=== PATIENT | female | born 1975 | race Caucasian/White ===

== ENCOUNTER 2021-09-22 14:55 | Emergency (ER) | payer MEDICAID, OTHER, SELFPAY ==
--- NOTE | ~2021-09-22 | XR_ITS ---
EXAMINATION: XR CERVICAL SPINE CLINICAL INFORMATION: Radiculopathy COMPARISON: Radiculopathy TECHNIQUE: 3 views of the cervical spine were obtained. FINDINGS: There is normal cervical lordosis. Vertebral bodies are normal in height. No vertebral compression, spondylolisthesis, disc narrowing, or prevertebral soft tissue swelling. The odontoid appears intact. Bony mineralization normal. No erosive change. XR/XR cervical spine 3V IMPRESSION: Unremarkable examination.
[2021-09-22 15:01] VITALS: BP 117/72; PULSE 80; RESP 16; TEMP 36.6; O2SAT 98; BMI 25.4
--- NOTE | 2021-09-22 15:53 | ED.GENADULT ---
HPI - General Adult General Chief complaint: General Medical <MARIANNE Hope Last Filed: 09/22/21 18:10> Stated complaint: swollen neck <MARIANNE Hope Last Filed: 09/22/21 18:10> Time Seen by Provider: 09/22/21 15:41 <MARIANNE Hope Last Filed: 09/22/21 18:10> Source: patient <MARIANNE Hope Last Filed: 09/22/21 18:10> Mode of arrival: ambulatory <MARIANNE Hope Last Filed: 09/22/21 18:10> Limitations: no limitations <MARIANNE Hope Last Filed: 09/22/21 18:10> History of Present Illness HPI narrative: 46 y/o female right hand dominant female with no significant medical history presents to the ER for evaluation right sided jaw and neck pain & pain that started yesterday. She reports pain is worse with palpation at the ankle of the jaw and down into the and movement of her head to the left. She denies any dental or ear pain. No fever or chills. She also reports right hand and finger tingling and numbness for the last 3-4 days. It is worse when she wakes up. It is located in the palm of her hand and in the tips of her 2nd and 3rd digit. No pain or weakness. <MARIANNE Hope - Last Filed: 09/22/21 18:10> MD complaint: right sided jaw and neck pain, right hand tingling <MARIANNE Hope - Last Filed: 09/22/21 18:10> Onset (ago): day(s) <MARIANNE Hope Last Filed: 09/22/21 18:10> Location: face, right and upper extremity <MARIANNE Hope Last Filed: 09/22/21 18:10> Radiation: proximal <MARIANNE Hope Last Filed: 09/22/21 18:10> Severity: moderate <MARIANNE Hope Last Filed: 09/22/21 18:10> Severity scale (1-10): 7 <MARIANNE Hope Last Filed: 09/22/21 18:10> Quality: aching <MARIANNE Hope - Last Filed: 09/22/21 18:10> Pain Consistency: constant <MARIANNE Hope - Last Filed: 09/22/21 18:10> Relieving factors: none <MARIANNE Hope - Last Filed: 09/22/21 18:10> Exacerbating factors: movement and other (palpation) <MRAIANNE Hope - Last Filed: 09/22/21 18:10> Associated symptoms: denies other symptoms <MARIANNE Hope - Last Filed: 09/22/21 18:10> Treatments prior to arrival: none <MARIANNE Hope Last Filed: 09/22/21 18:10> Related Data Home medications: Previous Rx's Medication Instructions Recorded ibuprofen 600 mg tablet 600 mg PO Q8H PRN #20 tab 09/22/21 <MARIANNE Hope Last Filed: 09/22/21 18:10> Allergies/adverse reactions: Allergies Allergy/AdvReac Type Severity Reaction Status Date / Time No Known Allergies Allergy Unverified 07/23/20 17:16 <MARIANNE Hpoe - Last Filed: 09/22/21 18:10> Review of Systems Review of Systems: Constitutional: No Fever, No Chills ENT/Mouth: No sore throat, No Rhinorrhea, No Swallowing Difficulty, No dental pain Cardiovascular: No Chest Pain, No SOB, No Orthopnea, No Edema Respiratory: No Cough, No Sputum, No Wheezing, No dyspnea Gastrointestinal: No Nausea, No Vomiting, No Diarrhea, No abdominal Pain Musculoskeletal: +joint pain, + Myalgias Skin: No Skin Lesions, No rash Neuro: No Weakness, + Numbness, No Dizziness, No Headache Psych: No Anxiety/Panic, No Depression Heme/Lymph: No Bruising, + Lymphadenopathy Endocrine: No Polyuria, No Polydipsia <MARIANNE Hope Last Filed: 09/22/21 18:10> [facility] Past Medical History Medical History: Medical History (Updated 09/22/21 @ 16:28 by MARIANNE Hope) Back pain <MARIANNE Hope Last Filed: 09/22/21 18:10> Social History Social History: Social History Alcohol intake: unknown Patient Tobacco Use Status: Tobacco use Unknown Advance Directives: No Advance Directives Information Provided: No <MARIANNE Hope - Last Filed: 09/22/21 18:10> Physical Exam Vital Signs: Vital Signs: Last Vital Signs Temp 97.8 F 09/22/21 15:01 Pulse 80 09/22/21 15:01 Resp 16 09/22/21 15:01 BP 117/72 09/22/21 15:01 Pulse Ox 98 09/22/21 15:01 Body Mass Index 25.4 <MARIANNE Hope - Last Filed: 09/22/21 18:10> Vital Signs: Last Vital Signs Temp 97.8 F 09/22/21 15:01 Pulse 80 09/22/21 15:01 Resp 16 09/22/21 15:01 BP 117/72 09/22/21 15:01 Pulse Ox 98 09/22/21 15:01 Body Mass Index 25.4 <Roge Waterman MD - Last Filed: 09/22/21 16:30> Appearance: Alert. Oriented X3. No acute distress. Eyes: Pupils equal, round and reactive to light. ENT: Pharynx normal. No dental tenderness or swelling. right angle of the mandible with tenderness and swelling over area of parotid gland. No overylyign erythema or warmth. Normal TM's bilaterally. No mastoid tenderness. Neck: Normal inspection. Neck supple. Right distal neck CVS: Normal heart rate and rhythm. Pulses normal. Respiratory: No respiratory distress. Breath sounds normal. Abdomen: Soft and nontender. +BS x4 Skin: Skin warm and dry. Normal skin color. Normal skin turgor. No rashes. Extremities: No lower extremity edema. Neuro: Oriented X 3. No motor deficit. No sensory deficit. <MARIANNE Hope - Last Filed: 09/22/21 18:10> Course Course Course Narrative: 46-year-old female presenting with right-sided jaw and neck pain with associated swelling and tenderness. Exam is consistent with enlarged parotid gland on the right side. No evidence of dental abscess. In addition she has a few days worth of tingling and numbness in the right hand and fingers in the area of the median nerve distribution. Will get x-ray of the cervical spine to assess. <MARIANNE Hope - Last Filed: 09/22/21 18:10> Reevaluation(s) Reevaluation #1: The patient has evidence of 2 different processes. The first is that she has right sided parotiditis. With tenderness but no erythema, no evidence of facial cellulits, no abscess. The second process is her history is most consistent with carpal tunnel as her first three fingers are numb when she wakes up. She will go home on sucking candies and NSAIDS <Roge Waterman MD - Last Filed: 09/22/21 16:30> Time: 16:30 <Roge Waterman MD - Last Filed: 09/22/21 16:30> Reevaluation #2: XR cervical spine normal. Placed in wrist splint for comfort. Encourged to f/u with Ortho if symptoms persist with supportive care. Stable for d/c home. <MARIANNE Hope - Last Filed: 09/22/21 18:10> Critical Care Time Critical Care Time Critical Care Time: No <MARIANNE Hope - Last Filed: 09/22/21 18:10> Discharge Plan Discharge Clinical Impression: Parotiditis <MARIANNE Hope - Last Filed: 09/22/21 18:10> Patient Disposition: Home, Self-Care <MARIANNE Hope - Last Filed: 09/22/21 18:10> Instructions: Paresthesia (ED), Sialoadenitis (ED) <MARIANNE Hope - Last Filed: 09/22/21 18:10> Additional Instructions: Your jaw and neck swelling and pain are due to inflammation of one of your salivary glands Recommend warm compresses to the area and gentle massage several times per day Sour candy can help as well, or sucking on lemon wedges Your hand tingling is most likely due to compression of a nerve. Use the provided wrist brace as needed. Recommend sleeping in it to keep your wrist in a neutral position. Take the prescribed medication as needed for pain and swelling. Follow up with your doctor as needed. If you have ongoing numbness or tingling in your hand or fingers, recommend following up with nuisance wildlife specialist - name and number below. If you have persistent or worsening symptoms come back to the ER for further evaluation. <MARIANNE Hope - Last Filed: 09/22/21 18:10> Prescriptions: New ibuprofen 600 mg tablet 600 mg PO Q8H PRN (Reason: pain) Qty: 20 RF: 0 <MARIANNE Hope - Last Filed: 09/22/21 18:10> Referrals: Sabina Dejesus PA-C [Physician [employer] Battery Tester] - 1 week (right hand paresthesias - ?carpal tunnel) <MARIANNE Hope - Last Filed: 09/22/21 18:10> Stand Alone Forms: Work/School Release <MARIANNE Hope - Last Filed: 09/22/21 18:10> Interventions: ED Discharge Assessment Last Done: 09/22/21 17:11 <MARIANNE Hope - Last Filed: 09/22/21 18:10> Discharge Date/Time: 09/22/21 17:14 <MARIANNE Hope - Last Filed: 09/22/21 18:10>
[2021-09-22] MEDS: Ibuprofen 600 MG TABLET PO (16:00)
== END 2021-09-22 17:14 | disposition home or self-care (01) ==
PROVIDERS: Emergency Provider Emergency Medicine
DX: K11.20 Sialoadenitis, unspecified (principal)
CPT/HCPCS: 72040; 99283; 99284

== ENCOUNTER 2021-09-28 05:27 | Emergency (ER) | payer MEDICAID, OTHER, SELFPAY ==
--- NOTE | ~2021-09-28 | CT_ITS ---
EXAMINATION: CT HEAD WITHOUT CONTRAST CLINICAL INFORMATION: Vertigo. COMPARISON: None TECHNIQUE: Contiguous axial imaging was performed from the skull base to vertex without intravenous administration of contrast. This CT examination was performed using dose optimization techniques as appropriate, variously including the following: *Automated exposure control *Adjustment of mA and/or kV according to patient size (this includes techniques or standardized protocols for targeted exams where dose is matched to indication/reason for exam; i.e. extremities or head) *Use of iterative reconstruction technique DLP: 649 mGy-cm FINDINGS: There is no evidence of acute intracranial hemorrhage or territorial infarction. No abnormal mass effect or midline shift is seen. Dash to white matter differentiation is well preserved. No extra-axial fluid collections are identified. The ventricles are normal in size. There is no abnormal attenuation within the brain parenchyma. The osseous structures and soft tissues are normal. The mastoid air cells and visualized portions of the paranasal sinuses are well aerated. CT/CT head/brain wo con IMPRESSION: No acute intracranial process seen.
[2021-09-28 05:53] VITALS: BP 115/74; PULSE 70; RESP 16; TEMP 36.5; O2SAT 98; BMI 28.0
--- NOTE | 2021-09-28 07:17 | ED_ITS ---
HPI - Dizziness General Chief Complaint: Dizziness Stated Complaint: dizziness Time Seen by Provider: 09/28/21 07:17 Source: patient Mode of arrival: ambulatory Limitations: language barrier History of Present Illness HPI Narrative: history obtained by strategic advisor. she woke up and the room was spinning with nausea. Patient had diaphoresis. Patient had these feelings prior but never sought medical attention. Patient denies . 8 days ago she was seen for swollen parotid gland. MD elicited complaint: dizziness Onset (ago): hour(s) Timing: sudden onset Severity: moderate Description: room spinning Associated symptoms: nausea and diaphoresis Related Data Previous Rx's Medication Instructions Recorded ibuprofen 600 mg tablet 600 mg PO Q8H PRN #20 tab 09/22/21 meclizine 25 mg tablet 25 mg PO TID PRN #20 tab 09/28/21 Allergies Allergy/AdvReac Type Severity Reaction Status Date / Time No Known Allergies Allergy Unverified 07/23/20 17:16 Review of Systems Constitutional: Constitutional: Reports no additional constitutional complaints Eyes: Eyes: Reports no additional eye complaints ENT: Denies dizziness Cardiovascular: Cardiovascular: Reports no additional cardiovascular complaints Respiratory: Respiratory: Reports as per HPI Gastrointestinal: Gastrointestinal: Reports no additional gastrointestinal complaints Genitourinary: Genitourinary: Reports no additional female genitourinary complaints Musculoskeletal: Musculoskeletal: Reports no additional musculoskeletal complaints Integumentary/Breasts: Skin/Breast: Denies rash Neurologic: Reports system reviewed and no additional complaints, except as documented, Denies dizziness and Denies Sensory deficit (Neuro) Psychiatric: Psychiatric: Denies anxiety [facility] Past Medical History Medical History (Updated 09/28/21 @ 09:58 by Roge Waterman MD) Back pain Social History Social History Alcohol intake: unknown Patient Tobacco Use Status: Tobacco use Unknown Advance Directives: No Physical Exam Vital Signs: Vital Signs: Last Vital Signs Temp 97.7 F 09/28/21 05:53 Pulse 70 09/28/21 05:53 Resp 16 09/28/21 05:53 BP 115/74 09/28/21 05:53 Pulse Ox 98 09/28/21 05:53 Body Mass Index 28.0 Const: General: healthy appearing Nutritional Appearance: average body habitus Orientation/consciousness: oriented to person and patient oriented x3 Limitations: no limitations HENMT: Head: Yes normal to inspection Ears: external ears normal General nose exam: Normal external nose present Mouth: Normal oral and palatal mucosa present and oropharynx normal Throat: Yes posterior oropharynx normal Eyes: Other: nystagmus on right lateral gaze General: appearance normal, both eyes and all related structures Neck: Other: supple Neck: Yes normal visual inspection Chest: Chest palpation & inspection: normal inspection of the chest Resp: Auscultation: clear to auscultation bilaterally Cardio: Jugular venous distension: no JVD Rate: regular rate Rhythm: regular rhythm Heart sounds: S1 normal heart sound present and S2 normal heart sound present GI: Inspection: Yes normal to inspection Palpation (GI): Soft to palpation, nontender and No hepatosplenomegaly present Auscultation: normal bowel sounds : General: Yes no CVA tenderness Back/Spine/Pelvis: Back: no CVA tenderness Skin: General skin exam: no rashes or lesions noted Neuro: Other: positive [place] on right gaze General: oriented to person and patient oriented x3 Cranial nerves: Yes CN's II-XII intact bilaterally Motor exam (neuro): 5/5 motor strength present throughout Sensory Exam: No Sensory deficit (Neuro) Extrem: General: Yes normal to inspection Psych: Appearance: grossly normal Course Reevaluation(s) Reevaluation #1: Patient with bpv on physical, no intracranial lesions, improved with meclizine will dc home Time: 09:58 MDM - Dizziness Lab Data Result diagrams: 09/28/21 07:41 09/28/21 07:41 Labs: Lab Results 09/28/21 09/28/21 09/28/21 Range/Units 07:41 07:41 07:41 WBC 6.7 (4.8-10.8) X10*3/uL RBC 4.56 (4.20-5.50) X10*6/uL Hgb 13.7 (12.0-16.0) g/dl Hct 41.3 (37.0-47.0) % MCV 90.6 (80.0-98.0) fL MCH 30.0 (27.0-33.0) pg MCHC 33.2 (31.0-35.0) g/dl RDW 12.0 (11.0-16.0) % Plt Count 221 (160-400) X10*3/uL MPV 10.7 (9.4-12.3) fL Immature Gran % (Auto) 0.3 (0.0-0.4) % Neut % (Auto) 61.8 (45-73) % Lymph % (Auto) 30.2 (20-40) % [place] % (Auto) 5.1 (2-11) % Eos % (Auto) 2.5 (0-4) % Baso % (Auto) 0.1 (0-2) % Lymph # (Auto) 2.0 (1.2-4.9) X10*3/uL [place] # (Auto) 0.3 (0.1-1.2) X10*3/uL Eos # (Auto) 0.2 (0.0-0.4) X10*3/uL Baso # (Auto) 0.0 (0.0-0.2) X10*3/uL Abs Immat Gran (auto) 0.02 (0.00-0.03) X10*3/uL Absolute Neuts (auto) 4.1 (2.0-8.3) x10*3/uL Absolute Nucleated RBC 0.000 (0.0-0.012) X10*3/uL Nucleated RBC % (auto) 0.0 (0.0-0.2) /100WBC Sodium 142 (135-145) mmol/L Potassium 4.1 (3.3-5.1) mmol/L Chloride 111 H (96-108) mmol/L Carbon Dioxide 25 (22-29) mmol/L Anion Gap 10 L (12-20) BUN 7 L (9-16) mg/dL Creatinine 0.60 (0.5-1.4) mg/dL Estim Creat Clear Calc 100.6 Estimated GFR > 60 Random Glucose 122 H (60-115) mg/dL Calcium 9.3 (8.4-10.2) mg/dL Urine Color STRAW Urine Appearance HAZY Urine pH 5.5 (5.0-8.0) Ur Specific [place] 1.020 (1.005-1.025) Urine Protein NEG (NEG-TRACE) MG/DL Urine Glucose (UA) NEG (NEG) MG/DL Urine Ketones NEG (NEG) MG/DL Urine Blood NEG (NEG) Urine Nitrite NEG (NEG) Ur Leukocyte Esterase 3+ H (NEG) Urine RBC 0-2 (0) /HPF Urine WBC 1-4 (0-4) /HPF Ur Squamous Epith Cells 1+ /LPF Urine Bacteria TRACE /LPF Urine Test (NEGATIVE) 09/28/21 Range/Units 07:41 WBC (4.8-10.8) X10*3/uL RBC (4.20-5.50) X10*6/uL Hgb (12.0-16.0) g/dl Hct (37.0-47.0) % MCV (80.0-98.0) fL MCH (27.0-33.0) pg MCHC (31.0-35.0) g/dl RDW (11.0-16.0) % Plt Count (160-400) X10*3/uL MPV (9.4-12.3) fL Immature Gran % (Auto) (0.0-0.4) % Neut % (Auto) (45-73) % Lymph % (Auto) (20-40) % [place] % (Auto) (2-11) % Eos % (Auto) (0-4) % Baso % (Auto) (0-2) % Lymph # (Auto) (1.2-4.9) X10*3/uL [place] # (Auto) (0.1-1.2) X10*3/uL Eos # (Auto) (0.0-0.4) X10*3/uL Baso # (Auto) (0.0-0.2) X10*3/uL Abs Immat Gran (auto) (0.00-0.03) X10*3/uL Absolute Neuts (auto) (2.0-8.3) x10*3/uL Absolute Nucleated RBC (0.0-0.012) X10*3/uL Nucleated RBC % (auto) (0.0-0.2) /100WBC Sodium (135-145) mmol/L Potassium (3.3-5.1) mmol/L Chloride (96-108) mmol/L Carbon Dioxide (22-29) mmol/L Anion Gap (12-20) BUN (9-16) mg/dL Creatinine (0.5-1.4) mg/dL Estim Creat Clear Calc Estimated GFR Random Glucose (60-115) mg/dL Calcium (8.4-10.2) mg/dL Urine Color Urine Appearance Urine pH (5.0-8.0) Ur Specific [place] (1.005-1.025) Urine Protein (NEG-TRACE) MG/DL Urine Glucose (UA) (NEG) MG/DL Urine Ketones (NEG) MG/DL Urine Blood (NEG) Urine Nitrite (NEG) Ur Leukocyte Esterase (NEG) Urine RBC (0) /HPF Urine WBC (0-4) /HPF Ur Squamous Epith Cells /LPF Urine Bacteria /LPF Urine Test NEGATIVE (NEGATIVE) Imaging Data CT scan - head: Radiologist's impression: IMPRESSION: No acute intracranial process seen. Discharge Plan Discharge Clinical Impression: Benign paroxysmal positional vertigo Qualifiers: Laterality: right Qualified Code(s): H81.11 - Benign paroxysmal vertigo, right ear Patient Disposition: Home, Self-Care Instructions: Benign Paroxysmal Positional Vertigo (ED) Prescriptions: New meclizine 25 mg tablet 25 mg PO TID PRN (Reason: dizziness) Qty: 20 RF: 0 No Action ibuprofen 600 mg tablet 600 mg PO Q8H PRN (Reason: pain) Qty: 20 RF: 0 Referrals: Physician,None [Primary Care Provider] - 1 week
[2021-09-28 07:46] LABS: MANUAL DIFF FLAG NO
[2021-09-28 07:57] LABS: Basophils Percent Auto 0.1 % (0-2); Eosinophils Absolute Auto 0.2 X10*3/uL (0.0-0.4); Eosinophils Percent Auto 2.5 % (0-4); Hematocrit 41.3 % (37.0-47.0); Hemoglobin 13.7 g/dl (12.0-16.0); Imm Gran Abs Auto 0.02 X10*3/uL (0.00-0.03); Imm Gran Pct Auto 0.3 % (0.0-0.4); Lymphocytes Percent Auto 30.2 % (20-40); Mean Corpuscular HGB Conc 33.2 g/dl (31.0-35.0); Mean Corpuscular Volume 90.6 fL (80.0-98.0); Mean Platelet Volume 10.7 fL (9.4-12.3); Monocytes Absolute Auto 0.3 X10*3/uL (0.1-1.2); Monocytes Percent Auto 5.1 % (2-11); Neutrophils Absolute Auto 4.1 x10*3/uL (2.0-8.3); Neutrophils Percent Auto 61.8 % (45-73); Platelet Count 221 X10*3/uL (160-400); Red Blood Count 4.56 X10*6/uL (4.20-5.50); White Blood Count 6.7 X10*3/uL (4.8-10.8)
[2021-09-28 08:01] LABS: Appearance Urine HAZY; Color Urine STRAW; Glucose Urine UA NEG (NEG); Leukocyte Esterase Urine 3+ (NEG); Nitrite Urine NEG (NEG); PH 5.5 (5.0-8.0); UACC Culture Trigger YES; Urine Blood NEG (NEG); Urine Ketones NEG (NEG); Urine Protein NEG (NEG-TRACE)
[2021-09-28 08:03] LABS: Anion Gap 10 (12-20); Blood Urea Nitrogen 7 mg/dL (9-16); Calcium 9.3 mg/dL (8.4-10.2); Carbon Dioxide 25 mmol/L (22-29); Chloride 111 mmol/L (96-108); Creatinine Clr Calc Pharmacy 100.6; Estimated Glomerular Filt Rate > 60; Glucose Random 122 mg/dL (60-115); Potassium 4.1 mmol/L (3.3-5.1); Sodium 142 mmol/L (135-145); UPreg QC Valid YES; Urine Pregnancy NEGATIVE (NEGATIVE)
[2021-09-28 08:17] LABS: RBC Urine 0-2 /HPF (0)
[2021-09-28 08:18] LABS: Bacteria Urine TRACE /LPF; Squamous Epithelial Cell Urine 1+ /LPF
[2021-09-28] MEDS: Meclizine HCl 25 MG TABLET 50 MG PO (08:50)
== END 2021-09-28 10:18 | disposition home or self-care (01) ==
PROVIDERS: Emergency Provider Emergency Medicine
DX: H81.11 Benign paroxysmal vertigo, right ear (principal); R11.0 Nausea; Z79.899 Other long term (current) drug therapy
CPT/HCPCS: 36415; 70450; 80048; 81001; 81003; 81025; 85025; 87086; 99283; 99284

== ENCOUNTER 2022-08-12 21:49 | Emergency (ER) | payer MEDICAID, OTHER, SELFPAY ==
[2022-08-12 21:55] VITALS: BP 112/65; PULSE 77; RESP 18; TEMP 36.1; O2SAT 97; BMI 26.4
--- NOTE | 2022-08-13 03:17 | ED.EXTPRO ---
HPI - Extremity Problem General Chief complaint: Extremity Problem Stated complaint: L leg pain Time Seen by Provider: 08/13/22 03:11 Source: patient Mode of arrival: ambulatory Limitations: no limitations History of Present Illness HPI Narrative: 47-year-old female presents emergency room complaining of left hip pain. Patient denies any falls or injury states she woke up yesterday with pain. Patient states she has never had this problem in the past pain is worse with movement she states she is unable to ambulate she was able to walk to the room as walking on triage. MD Complaint: extremity pain Related Data Previous Rx's Medication Instructions Recorded ibuprofen 600 mg tablet 600 mg PO Q8H PRN pain #20 tabs 09/22/21 meclizine 25 mg tablet 25 mg PO TID PRN dizziness #20 tabs 09/28/21 indomethacin 25 mg capsule 25 mg PO BID #20 caps 08/13/22 Allergies Allergy/AdvReac Type Severity Reaction Status Date / Time No Known Allergies Allergy Unverified 07/23/20 17:16 Review of Systems Review of Systems: Review of systems: General: Patient denies any fever chills recent illness or falls Musculoskeletal: Denies back pain or body aches or other injuries HEENT: denies headache, runny nose, ear pain Respiratory: denies shortness of breath, cough Cardiovascular: no chest pain or palpitations : denies dysuria, frequency Abdomen: no nausea vomiting denies abdominal pain Extremities: no swelling, no pain Skin: no diaphoresis Yes all other systems are reviewed and are negative PMFSH Past Medical History Medical History (Updated 08/13/22 @ 04:30 by Daljit Calixto DO) Back pain Social History Social History Alcohol intake: unknown Patient Tobacco Use Status: Tobacco use Unknown Advance Directives: No Advance Directives Information Provided: No Physical Exam Vital Signs: Vital Signs: Last Vital Signs Temp 98.0 F 08/13/22 04:26 Pulse 67 08/13/22 04:26 Resp 18 08/13/22 04:26 BP 103/64 08/13/22 04:26 Pulse Ox 95 08/13/22 04:26 O2 Del Method 08/13/22 04:26 BMI result Body Mass Index 26.4 General: Well-appearing well-nourished in no signs of distress HEENT: Normocephalic atraumatic Neck: No signs of JVD, no masses no tenderness or lymphadenopathy Cardiovascular: Regular rate and rhythm Respiratory: Clear to auscultation bilaterally Abdomen: Soft nontender no masses Extremities: Normal pedal pulses no signs of edema patient tender to palpation along the inner growing there is no tenderness at ASIS ASIS or along the greater trochanter of the hip patient is able to have full range of motion lower extremities. Skin: Dry warm no rashes Back: No tenderness full ROM MDM - Extremity (Nontraumatic) MDM Narrative Medical decision making narrative: Concern for ectopic I will get x-rays I have sent a UA and urine test. XR are negative negative UA not . I will discharge home. Lab Data Labs: Lab Results 08/13/22 08/13/22 Range/Units 03:59 03:59 Urine Color Yellow Urine Appearance Clear Urine pH 6.5 (5.0-9.0) Ur Specific [place] 1.020 (1.005-1.025) Urine Protein Negative (Neg-Trace) mg/dL Urine Glucose (UA) Negative (Negative) mg/dL Urine Ketones Negative (Negative) mg/dL Urine Blood Negative (Negative) Urine Nitrite Negative (Negative) Ur Leukocyte Esterase Trace H (Negative) Urine RBC 0-2 (0-2) /HPF Urine WBC 0-5 (0-5) /HPF Ur Squamous Epith Cells 0-2 (0-2) /HPF Urine Bacteria None Seen (None Seen) Hyaline Casts 0-2 (0-2) /LPF Urine Test NEGATIVE (NEGATIVE) Discharge Plan Discharge Clinical Impression: Left inguinal pain Patient Disposition: Home, Self-Care Instructions: Groin Strain (ED) Additional Instructions: Please call to follow up with your doctor. Prescriptions: New indomethacin 25 mg capsule 25 mg PO BID Qty: 20 0RF Rx Instructions: administer with food or milk No Action ibuprofen 600 mg tablet 600 mg PO Q8H PRN (Reason: pain) Qty: 20 0RF meclizine 25 mg tablet 25 mg PO TID PRN (Reason: dizziness) Qty: 20 0RF
[2022-08-13] MEDS: Acetaminophen 325 MG TABLET 650 MG PO (03:34)
[2022-08-13] MEDS: Ketorolac Tromethamine 30 MG/ML VIAL 15 MG IM (03:34)
[2022-08-13 04:06] LABS: Appearance Urine Clear; Color Urine Yellow; Glucose Urine UA Negative (Negative); Leukocyte Esterase Urine Trace (Negative); Nitrite Urine Negative (Negative); PH 6.5 (5.0-9.0); UMIC TRIGGER UACC YES; Urine Blood Negative (Negative); Urine Ketones Negative (Negative); Urine Protein Negative (Neg-Trace)
[2022-08-13 04:08] LABS: UPreg QC Valid YES; Urine Pregnancy NEGATIVE (NEGATIVE)
[2022-08-13 04:11] LABS: Bacteria Urine None Seen (None Seen); Hyaline Casts Urine 0-2 /LPF (0-2); RBC Urine 0-2 /HPF (0-2); Squamous Epithelial Cell Urine 0-2 /HPF (0-2); WBC Urine 0-5 /HPF (0-5)
[2022-08-13 04:26] VITALS: BP 103/64; PULSE 67; RESP 18; TEMP 36.7; O2SAT 95
== END 2022-08-13 05:25 | disposition home or self-care (01) ==
PROVIDERS: Emergency Provider Student in an Organized Health Care Education/Training Program
DX: R10.30 Lower abdominal pain, unspecified (principal)
CPT/HCPCS: 72170; 73552; 81001; 81025; 96372; 99283; 99284; J1885

== ENCOUNTER 2025-02-18 22:42 | Emergency (ER) | payer MEDICAID, OTHER, SELFPAY ==
--- NOTE | ~2025-02-18 | CT_ITS ---
CLINICAL HISTORY: left flank pain Exam: CT abdomen and pelvis without intravenous contrast. Comparison: None. Findings: CT abdomen: Mild areas of atelectasis are seen within the lung bases bilaterally. No acute bony lesions. Elevated right hemidiaphragm. The liver is not completely included in the field of view. Specifically, the superior right lobe of the liver is excluded from the field of view. Liver is enlarged measuring at least 21.5 cm in long axis. Low-attenuation throughout the liver is indicative of fatty infiltration. Areas of focal fatty sparing within the liver adjacent to the gallbladder fossa. Unenhanced spleen, pancreas, gallbladder, and adrenal glands are unremarkable for acute findings. No renal or ureteral calculi identified. No hydronephrosis or perinephric stranding. Small bowel loops are of normal caliber. Small hiatal hernia. Large amount of ingested contents within the stomach. CT pelvis: Appendix is normal. No colonic wall thickening or pericolonic inflammatory stranding. Bxrp-dr-daxstvvs stool throughout the colon. Urinary bladder is minimally distended. There is a 15 mm right ovarian cyst. No free fluid or free air. Impression: 1. No renal or ureteral calculi. 2. Hepatomegaly with diffuse fatty infiltration of the liver. 3. Negative CT of the appendix. This document has been electronically signed by: Rafael Glover MD on 02/19/2025 01:36:03
[2025-02-18 22:51] VITALS: BP 130/68; PULSE 77; RESP 18; TEMP 36.6; O2SAT 97; BMI 26.1
[2025-02-18 23:00] LABS: MANUAL DIFF FLAG NO
[2025-02-18 23:05] LABS: Basophils Percent Auto 0.2 % (0-2); Eosinophils Absolute Auto 0.2 X10*3/uL (0.0-0.4); Eosinophils Percent Auto 2.6 % (0-4); Hematocrit 38.4 % (37.0-47.0); Hemoglobin 13.7 g/dl (12.0-16.0); Imm Gran Abs Auto 0.01 X10*3/uL (0.00-0.03); Imm Gran Pct Auto 0.1 % (0.0-0.4); Lymphocytes Absolute Auto 2.8 X10*3/uL (1.2-4.9); Lymphocytes Percent Auto 34.4 % (20-40); Mean Corpuscular HGB Conc 35.7 g/dl (31.0-35.0); Mean Corpuscular Hemoglobin 30.3 pg (27.0-33.0); Mean Platelet Volume 10.4 fL (9.4-12.3); Monocytes Absolute Auto 0.4 X10*3/uL (0.1-1.2); Monocytes Percent Auto 5.3 % (2-11); Neutrophils Absolute Auto 4.7 x10*3/uL (2.0-8.3); Neutrophils Percent Auto 57.4 % (45-73); Platelet Count 235 X10*3/uL (160-400); Red Blood Count 4.52 X10*6/uL (4.20-5.50); Red Cell Distribution Width 11.7 % (11.0-16.0); White Blood Count 8.1 X10*3/uL (4.8-10.8)
[2025-02-18 23:15] LABS: Alanine Aminotransferase 118 U/L (0-31); Albumin Level 4.2 g/dL (3.5-5.0); Alkaline Phosphatase 100 U/L (39-117); Anion Gap 14 (12-20); Aspartate Amino Transferase 56 U/L (5-31); Bilirubin Total 0.4 mg/dL (0.0-1.0); Blood Urea Nitrogen 9 mg/dL (9-16); Calcium 9.1 mg/dL (8.4-10.2); Carbon Dioxide 21 mmol/L (22-29); Chloride 110 mmol/L (96-108); Creatinine Clr Calc Pharmacy 104.6; Estimated Glomerular Filt Rate > 60; Glucose Random 180 mg/dL (60-115); Lipase 53 U/L (8-78); Potassium 3.3 mmol/L (3.3-5.1); Sodium 142 mmol/L (135-145); Total Protein 7.4 g/dL (6.5-8.0)
[2025-02-18 23:47] LABS: Appearance Urine Clear; Color Urine Yellow; Glucose Urine UA 100 mg/dL (Negative); Leukocyte Esterase Urine Small (1+) (Negative); Nitrite Urine Negative (Negative); Specific Gravity - Urine 1.015 (1.005-1.025); UMIC TRIGGER UACC YES; Urine Blood Negative (Negative); Urine Ketones Negative (Negative); Urine Protein Negative (Neg-Trace)
--- NOTE | 2025-02-18 23:48 | PC.NURSE ---
pt waiting to be seen by provider, ua collected and sent.
[2025-02-18 23:49] LABS: Bacteria Urine None Seen (None Seen); Hyaline Casts Urine 0-2 /LPF (0-2); RBC Urine 0-2 /HPF (0-2); Squamous Epithelial Cell Urine 0-2 /HPF (0-2); UACC Culture Trigger YES
--- NOTE | 2025-02-19 00:10 | ED.GENADULT ---
HPI - General Adult General Chief complaint: Back Pain/Injury Stated complaint: Flank pain Time Seen by Provider: 02/19/25 00:05 Source: patient Limitations: no limitations History of Present Illness ED Provider: Magda Brice PA-C HPI narrative: 49-year-old female presents with left flank pain x2 hours. Associated dysuria, increased urine frequency, voiding small amounts at a time. Denies nausea, vomiting, prior kidney stones, or fever. Related Data Previous Rx's ?Medication ?Instructions ?Recorded ibuprofen 600 mg tablet 600 mg PO Q8H PRN pain #20 tabs 09/22/21 meclizine 25 mg tablet 25 mg PO TID PRN dizziness #20 tabs 09/28/21 indomethacin 25 mg capsule 25 mg PO BID #20 caps 08/13/22 indomethacin 25 mg capsule 25 mg PO BID #20 caps 08/13/22 cephalexin 500 mg capsule 500 mg PO BID #13 caps 02/19/25 metformin 500 mg tablet 500 mg PO BID #60 tabs 02/19/25 Allergies Allergy/AdvReac Type Severity Reaction Status Date / Time No Known Allergies Allergy Verified 02/18/25 22:53 Review of Systems Review of Systems: Yes all other systems are reviewed and are negative Constitutional: Constitutional: Denies fatigue and Denies fever(s) Cardiovascular: Cardiovascular: Denies chest pain Gastrointestinal: Gastrointestinal: Denies abdominal pain, Denies nausea and Denies vomiting Genitourinary: Genitourinary: Denies hematuria, Reports dysuria, Reports flank pain and Reports urinary urgency Musculoskeletal: Musculoskeletal: Reports back pain and Denies radiating pain into limb Endocrine: Endocrine: Denies fatigue PMFSH Past Medical History Attestation statement: The following information was validated with the patient. Medical History (Updated 02/19/25 @ 02:36 by MARIANNE Casper) Back pain Social History Social History Alcohol intake: unknown Patient Tobacco Use Status: Tobacco use Unknown Smoked in Last 30 Days: No Use of substances other than those prescribed or required for medical reasons: No Advance Directives: No Advance Directives Information Provided: Yes Do you have a plan to hurt others: No Plan Physical Exam ED Vital Signs: Vital Signs - 24 hr 02/18/25 22:51 02/19/25 00:54 Temperature 97.8 F 98.7 F Pulse Rate 77 72 Respiratory Rate 18 20 Blood Pressure 130/68 119/75 Pulse Oximetry 97 94 Oxygen Delivery Method Room Air Room Air BMI result Body Mass Index 26.1 Const Other: Alert Orientation/consciousness: patient oriented x3 Resp Other: Nonlabored respiration Cardio Other: Normal peripheral perfusion GI Other: Abdomen is soft, nondistended, mild tenderness through mid section, without guarding General: Yes no CVA tenderness Back/Spine/Pelvis Back: no CVA tenderness Skin Other: Warm dry no rash Neuro General: patient oriented x3, gait normal, no focal motor deficits and CN's II-XI intact bilaterally Psych Other: Cooperative Medications Administered Discontinued Medications Generic Name Dose Route Start Last Admin Trade Name Freq PRN Reason Stop Dose Admin Sodium Chloride 1,000 mls @ 999 mls/hr 02/19/25 00:45 02/19/25 01:00 Ns IV 02/19/25 01:45 999 mls/hr .Q1H1M BRENNEN Administration Ketorolac Tromethamine 15 mg 02/19/25 00:32 02/19/25 01:00 Ketorolac Tromethamine 15 Mg/Ml Vial IVPUSH 02/19/25 00:33 15 mg ONCE ONE Administration Medical Decision Making Medical Decision Making [facility] Narrative: 49-year-old female presents with left flank pain x2 hours. Associated dysuria, increased urine frequency, voiding small amounts at a time. Denies nausea, vomiting, prior kidney stones, or fever. No known medical conditions History: Per patient I have considered the following differential diagnoses: Pyelonephritis, renal colic, UTI Plan: Given distribution of discomfort in nature of symptoms, I am considering renal colic, we will obtain a CT scan, giving fluid and Toradol. She has no CVA tenderness or active N,V to suggest pyelonephritis, she also is afebrile. She does have evidence of a urinary tract infection. Incidentally, I do believe the patient has a new diagnosis of diabetes, her blood sugar is 180. I have independently reviewed the following tests: Labs: No leukocytosis, not anemic, no electrolyte abnormality, hyperglycemic, urine with potential evidence of infection, but no nitrites, no blood. She is passing sugar, CT abd pelvis: CT pelvis: Appendix is normal. No colonic wall thickening or pericolonic inflammatory stranding. [id number]-[id number] stool throughout the colon. Urinary bladder is minimally distended. There is a 15 mm right ovarian cyst. No free fluid or free air. Impression: 1. No renal or ureteral calculi. 2. Hepatomegaly with diffuse fatty infiltration of the liver. 3. Negative CT of the appendix. Lab Data 02/18/25 22:56 02/18/25 22:56 Labs: Lab Results 02/18/25 02/18/25 Range/Units 22:56 23:41 WBC 8.1 (4.8-10.8) X10*3/uL RBC 4.52 (4.20-5.50) X10*6/uL Hgb 13.7 (12.0-16.0) g/dl Hct 38.4 (37.0-47.0) % MCV 85.0 (80.0-98.0) fL MCH 30.3 (27.0-33.0) pg MCHC 35.7 H (31.0-35.0) g/dl RDW 11.7 (11.0-16.0) % Plt Count 235 (160-400) X10*3/uL MPV 10.4 (9.4-12.3) fL Immature Gran % (Auto) 0.1 (0.0-0.4) % Neut % (Auto) 57.4 (45-73) % Lymph % (Auto) 34.4 (20-40) % [place] % (Auto) 5.3 (2-11) % Eos % (Auto) 2.6 (0-4) % Baso % (Auto) 0.2 (0-2) % Lymph # (Auto) 2.8 (1.2-4.9) X10*3/uL [place] # (Auto) 0.4 (0.1-1.2) X10*3/uL Eos # (Auto) 0.2 (0.0-0.4) X10*3/uL Baso # (Auto) 0.0 (0.0-0.2) X10*3/uL Abs Immat Gran (auto) 0.01 (0.00-0.03) X10*3/uL Absolute Neuts (auto) 4.7 (2.0-8.3) x10*3/uL Absolute Nucleated RBC 0.000 (0.0-0.012) X10*3/uL Nucleated RBC % (auto) 0.0 (0.0-0.2) /100WBC Sodium 142 (135-145) mmol/L Potassium 3.3 (3.3-5.1) mmol/L Chloride 110 H (96-108) mmol/L Carbon Dioxide 21 L (22-29) mmol/L Anion Gap 14 (12-20) BUN 9 (9-16) mg/dL Creatinine 0.61 (0.5-1.4) mg/dL Estim Creat Clear Calc 104.6 Estimated GFR > 60 Random Glucose 180 H (60-115) mg/dL Calcium 9.1 (8.4-10.2) mg/dL Total Bilirubin 0.4 (0.0-1.0) mg/dL AST 56 H (5-31) U/L ALT 118 H (0-31) U/L Alkaline Phosphatase 100 (39-117) U/L Total Protein 7.4 (6.5-8.0) g/dL Albumin 4.2 (3.5-5.0) g/dL Lipase 53 (8-78) U/L Urine Color Yellow Urine Appearance Clear Urine pH 6.0 (5.0-9.0) Ur Specific [place] 1.015 (1.005-1.025) Urine Protein Negative (Neg-Trace) mg/dL Urine Glucose (UA) 100 H (Negative) mg/dL Urine Ketones Negative (Negative) mg/dL Urine Blood Negative (Negative) Urine Nitrite Negative (Negative) Ur Leukocyte Esterase Small (1+) H (Negative) Urine RBC 0-2 (0-2) /HPF Urine WBC 11-20 H (0-5) /HPF Ur Squamous Epith Cells 0-2 (0-2) /HPF Urine Bacteria None Seen (None Seen) Hyaline Casts 0-2 (0-2) /LPF Discharge Plan Discharge Clinical Impression: Diabetes mellitus, NAFLD (nonalcoholic fatty liver disease), Urinary tract infection, Constipation Patient Disposition: Home, Self-Care Instructions: Constipation (ED), Urinary Tract Infection in Women (ED), Type 2 Diabetes in Adults: New Diagnosis (ED), Non-Alcoholic Fatty Liver Disease (ED), Diabetes and Nutrition (ED), How to Check your Blood Sugar (ED) Additional Instructions: It is concerning that you have developed diabetes. I am providing you with information to read about. I am starting you on metformin, take the medication as directed, I can give you a 1 month supply. You were also found to have what is called fatty liver disease, see home care instructions. You will require consult by Gastroenterology, a primary care provider will expedite this process for you. You were found to be constipated and have a urinary tract infection. See home care instructions for both conditions. Take the cephalexin as directed for the urinary tract infection. For the constipation, you need to purchase [id number] Colace, this is a stool softener, take it twice a day. You need to also purchase [id number]-[id number] MiraLax, take it 3 to 4 times a day, until you begin having multiple large volume bowel movements. Once you have alleviated your current stool burden, you need to take the Colace daily, and the MiraLax daily, to help maintain regular bowel movements. It is important that you obtain a primary care provider, you have new medical conditions that require further assessment. You need to call your insurance company tomorrow, they can help guide you through this process. Prescriptions: New metformin 500 mg tablet 500 mg PO BID Qty: 60 0RF cephalexin 500 mg capsule 500 mg PO BID Qty: 13 0RF No Action ibuprofen 600 mg tablet 600 mg PO Q8H PRN (Reason: pain) Qty: 20 0RF meclizine 25 mg tablet 25 mg PO TID PRN (Reason: dizziness) Qty: 20 0RF indomethacin 25 mg capsule 25 mg PO BID Qty: 20 0RF Rx Instructions: administer with food or milk indomethacin 25 mg capsule 25 mg PO BID Qty: 20 0RF Rx Instructions: administer with food or milk Print Language: Kyrgyz
[2025-02-19 00:54] VITALS: BP 119/75; PULSE 72; RESP 20; TEMP 37.1; O2SAT 94
[2025-02-19] MEDS: Ketorolac Tromethamine 15 MG/ML VIAL IVPUSH (01:00)
[2025-02-19] MEDS: 0.9 % Sodium Chloride 1,000 ML 999 ML IV (01:00)
--- NOTE | 2025-02-19 01:06 | PC.NURSE ---
Iv placed, medicated per mar, pt taken to CT-Scan
--- NOTE | 2025-02-19 02:19 | PC.NURSE ---
pt report improvement on pain level after medication.
--- NOTE | 2025-02-19 03:09 | PC.NURSE ---
Iv removed, medicated per jan, reviewed discharge instructions with pt, pt verbalized understanding, no sign of distress upon discharge, pt had a steady gait.
[2025-02-19 03:10] VITALS: BP 122/71; PULSE 61; RESP 19; TEMP 36.4; O2SAT 98
[2025-02-19] MEDS: cephALEXin 500 MG CAPSULE PO (03:12)
== END 2025-02-19 03:39 | disposition home or self-care (01) ==
PROVIDERS: Emergency Provider Emergency Medicine
DX: N39.0 Urinary tract infection, site not specified (principal); K59.00 Constipation, unspecified; E11.9 Type 2 diabetes mellitus without complications; K76.0 Fatty (change of) liver, not elsewhere classified; R10.9 Unspecified abdominal pain; Z79.899 Other long term (current) drug therapy
CPT/HCPCS: 36415; 74176; 80053; 81001; 83690; 85025; 87086; 96374; 99284; 99285; J1885

== ENCOUNTER → 2025-02-19 00:32 | Outpatient (BNV) | payer MEDICAID, SELFPAY | PROVIDERS: Emergency Provider Emergency Medicine; Visit Provider Radiology Diagnostic Radiology | DX: R16.0 Hepatomegaly, not elsewhere classified (principal) | CPT/HCPCS: 74176 ==

== ENCOUNTER 2025-02-27 16:17 | Emergency (ER) | payer MEDICAID, OTHER, SELFPAY ==
--- NOTE | ~2025-02-27 | CT_ITS ---
CLINICAL HISTORY: herring CT head without contrast Comparison: None Findings: There is no acute intracranial hemorrhage. Ventricles are of normal size and shape. No mass effect or midline shift is present. The bella-white matter differentiation appears normal. There is a small amount of mucus within the left maxillary and left frontal sinuses. Mastoids are clear. Orbits are unremarkable. No fractures are identified. IMPRESSION: No intracranial abnormality. CT angiography head with contrast. CT angiography neck with contrast. 3-D postprocessing Comparison: None Findings: Neck: The common carotid arteries are patent without stenosis. The internal carotid arteries are patent without stenosis. The vertebral arteries are codominant and patent without stenosis. There is no arterial dissection. There is a 2.2 x 0.7 collection of extraluminal gas along the posterolateral margin of the trachea and lateral margin of the esophagus just below the thoracic inlet probably either a tracheocele or esophageal diverticulum containing secretions. Pneumomediastinum is less likely. Head: The basilar artery is patent without stenosis. The anterior, middle, and posterior cerebral arteries are patent without stenosis. There is no aneurysm. There is no dural venous sinus thrombosis. IMPRESSION: 1. No arterial abnormality in the head or neck. 2. Small collection of extraluminal gas along the posterolateral margin of the trachea and lateral margin of the esophagus just below the thoracic inlet probably either a tracheocele or esophageal diverticulum containing secretions. Pneumomediastinum is less likely. This document has been electronically signed by: Trevon Chapa MD on 02/27/2025 23:30:30
[2025-02-27 16:23] VITALS: BP 102/69; PULSE 69; RESP 16; TEMP 36.4; O2SAT 97; BMI 27.4
--- NOTE | 2025-02-27 16:27 | ED_ITS ---
HPI - Headache General Chief Complaint: Headache Stated Complaint: Headache; numbness in hands Time Seen by Provider: 02/27/25 20:56 Related Data Previous Rx's ?Medication ?Instructions ?Recorded ibuprofen 600 mg tablet 600 mg PO Q8H PRN pain #20 tabs 09/22/21 meclizine 25 mg tablet 25 mg PO TID PRN dizziness #20 tabs 09/28/21 indomethacin 25 mg capsule 25 mg PO BID #20 caps 08/13/22 indomethacin 25 mg capsule 25 mg PO BID #20 caps 08/13/22 cephalexin 500 mg capsule 500 mg PO BID #13 caps 02/19/25 metformin 500 mg tablet 500 mg PO BID #60 tabs 02/19/25 Allergies Allergy/AdvReac Type Severity Reaction Status Date / Time No Known Allergies Allergy Verified 02/27/25 16:28 [facility] Past Medical History Medical History Back pain Social History Social History Alcohol intake: unknown Patient Tobacco Use Status: Tobacco use Unknown Advance Directives: No Advance Directives Information Provided: No Do you have a plan to hurt others: No Plan Physical Exam 2 Vital Signs: Vital Signs: Last Vital Signs Temp 98.2 F 02/27/25 21:25 Pulse 67 02/27/25 21:25 Resp 16 02/27/25 21:25 BP 112/70 02/27/25 21:25 Pulse Ox 97 02/27/25 21:25 O2 Del Method Room Air 02/27/25 21:25 BMI result Body Mass Index 27.4 Course Course Course Narrative: This is a Rapid Medical Exam performed in triage by Ariadna Leon PA-C. Full HPI, ROS and PE to be performed by primary ED provider. 49-year-old Ukrainian-speaking female presenting to the ED c/o ARMIJO, hand pain/numbness, ear pain, eye straining x 3 days PE: Nontoxic appearing, ambulating with steady gait Plan: EKG, labs, UA, viral testing Medications Administered Discontinued Medications Generic Name Dose Route Start Last Admin Trade Name Freq PRN Reason Stop Dose Admin Diphenhydramine HCl 25 mg 02/27/25 21:06 02/27/25 22:00 Diphenhydramine Hcl 50 Mg/Ml Vial IVPUSH 02/27/25 21:07 25 mg ONCE ONE Administration Sodium Chloride 1,000 mls @ 999 mls/hr 02/27/25 21:15 02/27/25 22:03 Ns IV 02/27/25 22:15 999 mls/hr .Q1H1M BRENNEN Administration Iohexol 75 ml 02/27/25 22:39 02/27/25 22:40 Iohexol 350 Mg/Ml 100 Ml Infus..Btl IV 02/27/25 22:40 75 ml ONCE ONE Administration Ketorolac Tromethamine 15 mg 02/27/25 21:06 02/27/25 21:59 Ketorolac Tromethamine 15 Mg/Ml Vial IVPUSH 02/27/25 21:07 15 mg ONCE ONE Administration Metoclopramide HCl 10 mg 02/27/25 21:06 02/27/25 22:00 Metoclopramide Hcl 10 Mg/2 Ml Vial IVPUSH 02/27/25 21:07 10 mg ONCE ONE Administration Medical Decision Making Lab Data 02/27/25 16:56 02/27/25 16:56 Labs: Lab Results 02/27/25 02/27/25 Range/Units 16:56 17:01 WBC 7.0 (4.8-10.8) X10*3/uL RBC 4.65 (4.20-5.50) X10*6/uL Hgb 13.9 (12.0-16.0) g/dl Hct 39.7 (37.0-47.0) % MCV 85.4 (80.0-98.0) fL MCH 29.9 (27.0-33.0) pg MCHC 35.0 (31.0-35.0) g/dl RDW 11.6 (11.0-16.0) % Plt Count 239 (160-400) X10*3/uL MPV 10.7 (9.4-12.3) fL Immature Gran % (Auto) 0.1 (0.0-0.4) % Neut % (Auto) 54.4 (45-73) % Lymph % (Auto) 36.6 (20-40) % [place] % (Auto) 5.8 (2-11) % Eos % (Auto) 2.8 (0-4) % Baso % (Auto) 0.3 (0-2) % Lymph # (Auto) 2.6 (1.2-4.9) X10*3/uL [place] # (Auto) 0.4 (0.1-1.2) X10*3/uL Eos # (Auto) 0.2 (0.0-0.4) X10*3/uL Baso # (Auto) 0.0 (0.0-0.2) X10*3/uL Abs Immat Gran (auto) 0.01 (0.00-0.03) X10*3/uL Absolute Neuts (auto) 3.8 (2.0-8.3) x10*3/uL Absolute Nucleated RBC 0.000 (0.0-0.012) X10*3/uL Nucleated RBC % (auto) 0.0 (0.0-0.2) /100WBC Sodium 139 (135-145) mmol/L Potassium 3.6 (3.3-5.1) mmol/L Chloride 105 (96-108) mmol/L Carbon Dioxide 25 (22-29) mmol/L Anion Gap 13 (12-20) BUN 12 (9-16) mg/dL Creatinine 0.65 (0.5-1.4) mg/dL Estim Creat Clear Calc 92.8 Estimated GFR > 60 Random Glucose 114 (60-115) mg/dL Calcium 9.3 (8.4-10.2) mg/dL Magnesium 2.3 (1.6-2.6) mg/dL Total Bilirubin 0.5 (0.0-1.0) mg/dL Direct Bilirubin 0.3 (0.0-0.5) mg/dL AST 69 H (5-31) U/L ALT 131 H (0-31) U/L Alkaline Phosphatase 80 (39-117) U/L Total Protein 7.7 (6.5-8.0) g/dL Albumin 4.4 (3.5-5.0) g/dL Urine Color Yellow Urine Appearance Clear Urine pH 6.0 (5.0-9.0) Ur Specific [place] 1.015 (1.005-1.025) Urine Protein Negative (Neg-Trace) mg/dL Urine Glucose (UA) Negative (Negative) mg/dL Urine Ketones 15 (Negative) mg/dL Urine Blood Negative (Negative) Urine Nitrite Negative (Negative) Ur Leukocyte Esterase Large (3+) H (Negative) Urine RBC 0-2 (0-2) /HPF Urine WBC >50 H (0-5) /HPF Ur Squamous Epith Cells 6-10 (0-2) /HPF Urine Bacteria Trace (None Seen) Hyaline Casts 0-2 (0-2) /LPF Urine Test NEGATIVE (NEGATIVE) Influenza Type A (PCR) NEGATIVE (Negative) Influenza Type B (PCR) NEGATIVE (Negative) RSV RNA Qual (PCR) NEGATIVE (Negative) SARS-CoV-2 RNA (RT-PCR) NEGATIVE (Negative) Discharge Plan Discharge Clinical Impression: Migraine, Urinary tract infection Patient Disposition: Home, Self-Care Instructions: Urinary Tract Infection in Women (DC), Migraine Headache (ED) Prescriptions: No Action ibuprofen 600 mg tablet 600 mg PO Q8H PRN (Reason: pain) Qty: 20 0RF meclizine 25 mg tablet 25 mg PO TID PRN (Reason: dizziness) Qty: 20 0RF indomethacin 25 mg capsule 25 mg PO BID Qty: 20 0RF Rx Instructions: administer with food or milk indomethacin 25 mg capsule 25 mg PO BID Qty: 20 0RF Rx Instructions: administer with food or milk metformin 500 mg tablet 500 mg PO BID Qty: 60 0RF cephalexin 500 mg capsule 500 mg PO BID Qty: 13 0RF Referrals: Physician,None [Primary Care Provider] - 03/03/25 Print Language: Ukrainian
--- NOTE | 2025-02-27 16:41 | ECG_ITS ---
Test Reason : CHEST PAIN Blood Pressure : */* mmHG Vent. Rate : 69 BPM Atrial Rate : 69 BPM P-R Int : 146 ms QRS Dur : 92 ms QT Int : 390 ms P-R-T Axes : 20 60 30 degrees QTcB Int : 417 ms Normal sinus rhythm Nonspecific T wave abnormality Abnormal ECG No previous ECGs available Referred By: Ariadna Leon Electronically Signed By: CHELO MONTOYA
[2025-02-27 17:03] LABS: MANUAL DIFF FLAG NO
[2025-02-27 17:10] LABS: Basophils Percent Auto 0.3 % (0-2); Eosinophils Absolute Auto 0.2 X10*3/uL (0.0-0.4); Eosinophils Percent Auto 2.8 % (0-4); Hematocrit 39.7 % (37.0-47.0); Hemoglobin 13.9 g/dl (12.0-16.0); Imm Gran Abs Auto 0.01 X10*3/uL (0.00-0.03); Imm Gran Pct Auto 0.1 % (0.0-0.4); Lymphocytes Absolute Auto 2.6 X10*3/uL (1.2-4.9); Lymphocytes Percent Auto 36.6 % (20-40); Mean Corpuscular Hemoglobin 29.9 pg (27.0-33.0); Mean Corpuscular Volume 85.4 fL (80.0-98.0); Mean Platelet Volume 10.7 fL (9.4-12.3); Monocytes Absolute Auto 0.4 X10*3/uL (0.1-1.2); Monocytes Percent Auto 5.8 % (2-11); Neutrophils Absolute Auto 3.8 x10*3/uL (2.0-8.3); Neutrophils Percent Auto 54.4 % (45-73); Platelet Count 239 X10*3/uL (160-400); Red Blood Count 4.65 X10*6/uL (4.20-5.50); Red Cell Distribution Width 11.6 % (11.0-16.0)
[2025-02-27 17:18] LABS: Alanine Aminotransferase 131 U/L (0-31); Albumin Level 4.4 g/dL (3.5-5.0); Alkaline Phosphatase 80 U/L (39-117); Anion Gap 13 (12-20); Aspartate Amino Transferase 69 U/L (5-31); Bilirubin Direct 0.3 mg/dL (0.0-0.5); Bilirubin Total 0.5 mg/dL (0.0-1.0); Blood Urea Nitrogen 12 mg/dL (9-16); Calcium 9.3 mg/dL (8.4-10.2); Carbon Dioxide 25 mmol/L (22-29); Chloride 105 mmol/L (96-108); Creatinine Clr Calc Pharmacy 92.8; Estimated Glomerular Filt Rate > 60; Glucose Random 114 mg/dL (60-115); Magnesium 2.3 mg/dL (1.6-2.6); Potassium 3.6 mmol/L (3.3-5.1); Sodium 139 mmol/L (135-145); Total Protein 7.7 g/dL (6.5-8.0)
[2025-02-27 17:20] LABS: Appearance Urine Clear; Color Urine Yellow; Glucose Urine UA Negative (Negative); Leukocyte Esterase Urine Large (3+) (Negative); Nitrite Urine Negative (Negative); Specific Gravity - Urine 1.015 (1.005-1.025); UMIC TRIGGER UACC YES; Urine Blood Negative (Negative); Urine Ketones 15 mg/dL (Negative); Urine Protein Negative (Neg-Trace)
[2025-02-27 17:22] LABS: UPreg QC Valid YES; Urine Pregnancy NEGATIVE (NEGATIVE)
[2025-02-27 17:37] LABS: Bacteria Urine Trace (None Seen); Hyaline Casts Urine 0-2 /LPF (0-2); RBC Urine 0-2 /HPF (0-2); UACC Culture Trigger YES; WBC Urine >50 /HPF (0-5)
[2025-02-27 17:39] LABS: Influenza A PCR NEGATIVE (Negative); Influenza B PCR NEGATIVE (Negative); Resp Syncy Virus RNA Qual PCR NEGATIVE (Negative); SARS COV2 PCR INHOUSE NEGATIVE (Negative)
--- NOTE | 2025-02-27 21:09 | ED_ITS ---
HPI - Headache General Chief Complaint: Headache Stated Complaint: Headache; numbness in hands Time Seen by Provider: 02/27/25 20:56 History of Present Illness HPI Narrative: Patient is a 49-year-old female recently diagnosed with diabetes complaining of headache that is frontal also having some tingling to the right hand and some pain there. There is no weakness. There is good strength in the upper extremity. There is no vomiting there is positive nausea denies any fever chills. Symptom ongoing for the last 3 days. Did not traveled. No neck pain. No diaphoresis. No chest pain. No abdominal pain. No diarrhea. No focal weakness in the lower extremity. Related Data Previous Rx's ?Medication ?Instructions ?Recorded ibuprofen 600 mg tablet 600 mg PO Q8H PRN pain #20 tabs 09/22/21 meclizine 25 mg tablet 25 mg PO TID PRN dizziness #20 tabs 09/28/21 indomethacin 25 mg capsule 25 mg PO BID #20 caps 08/13/22 indomethacin 25 mg capsule 25 mg PO BID #20 caps 08/13/22 cephalexin 500 mg capsule 500 mg PO BID #13 caps 02/19/25 metformin 500 mg tablet 500 mg PO BID #60 tabs 02/19/25 Allergies Allergy/AdvReac Type Severity Reaction Status Date / Time No Known Allergies Allergy Verified 02/27/25 16:28 Review of Systems 2 Review of Systems: Positive headache PMFSH Past Medical History Attestation statement: The following information was validated with the patient. Medical History Back pain Social History Social History Alcohol intake: unknown Patient Tobacco Use Status: Tobacco use Unknown Advance Directives: No Advance Directives Information Provided: No Do you have a plan to hurt others: No Plan Physical Exam 2 Vital Signs: Vital Signs: Last Vital Signs Temp 98.2 F 02/27/25 21:25 Pulse 67 02/27/25 21:25 Resp 16 02/27/25 21:25 BP 112/70 02/27/25 21:25 Pulse Ox 97 02/27/25 21:25 O2 Del Method Room Air 02/27/25 21:25 BMI result Body Mass Index 27.4 Appearance: Alert. Oriented X3. No acute distress. Eyes: Pupils equal, round and reactive to light. ENT: Pharynx normal. Neck: Normal inspection. Neck supple. No lymph nodes noted. No crepitus CVS: Normal heart rate and rhythm. Pulses normal. Normal S1 and S2 Respiratory: No respiratory distress. Breath sounds normal. No Wheezing. No rales Abdomen: Soft and nontender. No rigidity. No distention. good BS x4 Skin: Skin warm and dry. Normal skin color. Normal skin turgor. Extremities: No lower extremity edema. Neurovascular intact to all extremities. No Lacerations. No Rash Neuro: Oriented X 3. No motor deficit. No sensory deficit. Moving all extermities. No slurred speech Medications Administered Discontinued Medications Generic Name Dose Route Start Last Admin Trade Name Freq PRN Reason Stop Dose Admin Diphenhydramine HCl 25 mg 02/27/25 21:06 02/27/25 22:00 Diphenhydramine Hcl 50 Mg/Ml Vial IVPUSH 02/27/25 21:07 25 mg ONCE ONE Administration Sodium Chloride 1,000 mls @ 999 mls/hr 02/27/25 21:15 02/27/25 22:03 Ns IV 02/27/25 22:15 999 mls/hr .Q1H1M BRENNEN Administration Iohexol 75 ml 02/27/25 22:39 02/27/25 22:40 Iohexol 350 Mg/Ml 100 Ml Infus..Btl IV 02/27/25 22:40 75 ml ONCE ONE Administration Ketorolac Tromethamine 15 mg 02/27/25 21:06 02/27/25 21:59 Ketorolac Tromethamine 15 Mg/Ml Vial IVPUSH 02/27/25 21:07 15 mg ONCE ONE Administration Metoclopramide HCl 10 mg 02/27/25 21:06 02/27/25 22:00 Metoclopramide Hcl 10 Mg/2 Ml Vial IVPUSH 02/27/25 21:07 10 mg ONCE ONE Administration Medical Decision Making Medical Decision Making MDM Narrative: Patient has headache associated with some numbness and pain in the fingers. Vision grossly intact. TMs intact bilaterally well-appearing. Has been on antibiotic Keflex for UTI for 24 hours. Still has 2 days left. Patient's labs showed a normal white count. Electrolytes are unremarkable. Patient's urine showed evidence for urinary tract infection. Previous culture results was reviewed. There was no sensitivities noted. Patient CT scan head and CTA head and neck were both reviewed by Radiology is negative for any acute evidence bleeding no large vessel occlusion. Patient was given migraine treatment with good results. No signs of a stroke. No signs of an aneurysm. Patient otherwise well appearing. Neurologically intact. Given a migraine cocktail with good resolution of symptoms. Because patient only had 24 hours antibiotic will have patient continue Keflex. Will have patient follow-up on an outpatient basis. In stable condition. Differential Diagnosis Differential Diagnoses: The differential diagnosis associated with the presentation includes Admission/Observation Consideration of admission/observation: Escalation of care including admission/observation considered Lab Data MDM Lab Attestation statement: I reviewed the patient's lab results. 02/27/25 16:56 02/27/25 16:56 Labs: Lab Results 02/27/25 02/27/25 Range/Units 16:56 17:01 WBC 7.0 (4.8-10.8) X10*3/uL RBC 4.65 (4.20-5.50) X10*6/uL Hgb 13.9 (12.0-16.0) g/dl Hct 39.7 (37.0-47.0) % MCV 85.4 (80.0-98.0) fL MCH 29.9 (27.0-33.0) pg MCHC 35.0 (31.0-35.0) g/dl RDW 11.6 (11.0-16.0) % Plt Count 239 (160-400) X10*3/uL MPV 10.7 (9.4-12.3) fL Immature Gran % (Auto) 0.1 (0.0-0.4) % Neut % (Auto) 54.4 (45-73) % Lymph % (Auto) 36.6 (20-40) % [place] % (Auto) 5.8 (2-11) % Eos % (Auto) 2.8 (0-4) % Baso % (Auto) 0.3 (0-2) % Lymph # (Auto) 2.6 (1.2-4.9) X10*3/uL [place] # (Auto) 0.4 (0.1-1.2) X10*3/uL Eos # (Auto) 0.2 (0.0-0.4) X10*3/uL Baso # (Auto) 0.0 (0.0-0.2) X10*3/uL Abs Immat Gran (auto) 0.01 (0.00-0.03) X10*3/uL Absolute Neuts (auto) 3.8 (2.0-8.3) x10*3/uL Absolute Nucleated RBC 0.000 (0.0-0.012) X10*3/uL Nucleated RBC % (auto) 0.0 (0.0-0.2) /100WBC Sodium 139 (135-145) mmol/L Potassium 3.6 (3.3-5.1) mmol/L Chloride 105 (96-108) mmol/L Carbon Dioxide 25 (22-29) mmol/L Anion Gap 13 (12-20) BUN 12 (9-16) mg/dL Creatinine 0.65 (0.5-1.4) mg/dL Estim Creat Clear Calc 92.8 Estimated GFR > 60 Random Glucose 114 (60-115) mg/dL Calcium 9.3 (8.4-10.2) mg/dL Magnesium 2.3 (1.6-2.6) mg/dL Total Bilirubin 0.5 (0.0-1.0) mg/dL Direct Bilirubin 0.3 (0.0-0.5) mg/dL AST 69 H (5-31) U/L ALT 131 H (0-31) U/L Alkaline Phosphatase 80 (39-117) U/L Total Protein 7.7 (6.5-8.0) g/dL Albumin 4.4 (3.5-5.0) g/dL Urine Color Yellow Urine Appearance Clear Urine pH 6.0 (5.0-9.0) Ur Specific [place] 1.015 (1.005-1.025) Urine Protein Negative (Neg-Trace) mg/dL Urine Glucose (UA) Negative (Negative) mg/dL Urine Ketones 15 (Negative) mg/dL Urine Blood Negative (Negative) Urine Nitrite Negative (Negative) Ur Leukocyte Esterase Large (3+) H (Negative) Urine RBC 0-2 (0-2) /HPF Urine WBC >50 H (0-5) /HPF Ur Squamous Epith Cells 6-10 (0-2) /HPF Urine Bacteria Trace (None Seen) Hyaline Casts 0-2 (0-2) /LPF Urine Test NEGATIVE (NEGATIVE) Influenza Type A (PCR) NEGATIVE (Negative) Influenza Type B (PCR) NEGATIVE (Negative) RSV RNA Qual (PCR) NEGATIVE (Negative) SARS-CoV-2 RNA (RT-PCR) NEGATIVE (Negative) Independent Interpretation I performed an independent interpretation of an: CT Scan (CT head negative for any acute evidence of bleeding) Radiology Impression Discussion of test interpretation with radiology: I have reviewed the radiologist's reading. External Record Review External record reviewed: Inpatient record Results Social Determinants Patient?s care significantly limited by Social Determinants of Health including: Problems related to primary support group Discharge Plan Discharge Clinical Impression: Migraine, Urinary tract infection Patient Disposition: Home, Self-Care Instructions: Urinary Tract Infection in Women (DC), Migraine Headache (ED) Prescriptions: No Action ibuprofen 600 mg tablet 600 mg PO Q8H PRN (Reason: pain) Qty: 20 0RF meclizine 25 mg tablet 25 mg PO TID PRN (Reason: dizziness) Qty: 20 0RF indomethacin 25 mg capsule 25 mg PO BID Qty: 20 0RF Rx Instructions: administer with food or milk indomethacin 25 mg capsule 25 mg PO BID Qty: 20 0RF Rx Instructions: administer with food or milk metformin 500 mg tablet 500 mg PO BID Qty: 60 0RF cephalexin 500 mg capsule 500 mg PO BID Qty: 13 0RF Referrals: Physician,None [Primary Care Provider] - 03/03/25 Print Language: Cuban
[2025-02-27 21:25] VITALS: BP 112/70; PULSE 67; RESP 16; TEMP 36.8; O2SAT 97
[2025-02-27] MEDS: Ketorolac Tromethamine 15 MG/ML VIAL IVPUSH (21:59)
[2025-02-27] MEDS: diphenhydrAMINE HCL 50 MG/ML VIAL 25 MG IVPUSH (22:00)
[2025-02-27] MEDS: Metoclopramide HCl 10 MG/2 ML VIAL IVPUSH (22:00)
[2025-02-27] MEDS: 0.9 % Sodium Chloride 1,000 ML 999 ML IV (22:03)
[2025-02-27] MEDS: iohexoL 350 MG/ML 100 ML INFUS..BTL 75 ML IV (22:40)
[2025-02-28 00:38] VITALS: BP 99/67; PULSE 74; RESP 16; TEMP 36.2; O2SAT 97
--- NOTE | 2025-02-28 00:40 | MHC.EDTECH ---
0000 rounding done ,mid night vitals taken ,Patient waiting for discharge Paper work .
[2025-02-28 01:44] VITALS: BP 99/67; PULSE 74; RESP 16; TEMP 36.2; O2SAT 97
== END 2025-02-28 01:46 | disposition home or self-care (01) ==
PROVIDERS: Physician Assistant; Emergency Provider Emergency Medicine Emergency Medical Services
DX: G43.909 Migraine, unspecified, not intractable, without status migrainosus (principal); N39.0 Urinary tract infection, site not specified; R20.0 Anesthesia of skin; E11.9 Type 2 diabetes mellitus without complications; Z03.818 Encounter for observation for suspected exposure to other biological agents ruled out; Z79.84 Long term (current) use of oral hypoglycemic drugs; Z79.899 Other long term (current) drug therapy
CPT/HCPCS: 0241U; 36415; 70496; 70498; 80048; 80076; 81001; 81025; 83735; 85025; 87086; 87088; 93005; 96361; 96374; 96375; 99284; 99285; J1200; J1885; J2765; Q9967

== ENCOUNTER → 2025-02-27 16:41 | Outpatient (BNV) | payer MEDICAID, SELFPAY | PROVIDERS: Emergency Provider Emergency Medicine Emergency Medical Services; Visit Provider Internal Medicine | DX: R07.9 Chest pain, unspecified (principal); R94.31 Abnormal electrocardiogram [ECG] [EKG] | CPT/HCPCS: 93010 ==

== ENCOUNTER → 2025-02-27 21:05 | Outpatient (BNV) | payer MEDICAID, SELFPAY | PROVIDERS: Emergency Provider Emergency Medicine Emergency Medical Services; Visit Provider Radiology Diagnostic Radiology | DX: R51.9 Headache, unspecified (principal); J01.40 Acute pansinusitis, unspecified; J39.9 Disease of upper respiratory tract, unspecified | CPT/HCPCS: 70450; 70496; 70498 ==